=== PATIENT | female | born 1985 | race Caucasian/White ===

== ENCOUNTER 2016-11-06 19:07 | Emergency (ER) | payer MEDICAID ==
[~2016-11-06] VITALS: Ht 154.9 cm; Wt 72.0 kg
[2016-11-06 19:27] VITALS: BP 134/86; PULSE 93; RESP 18; TEMP 98; O2SAT 100
[2016-11-06] MEDS ORDERED: ORPHENADRINE INJ 60 MG/2 ML AMP IM ONE (21:30)
[2016-11-06] MEDS ORDERED: DEXAMETHASONE SOD PHOS 20 MG/5 ML VIAL IM ONE (21:30)
[2016-11-06] MEDS ORDERED: KETOROLAC TROMETHAMINE 60 MG/2 ML (IM) VIAL IM ONE (21:30)
--- NOTE | 2016-11-06 21:30 | PD ---
HPI Chief Complaint: Headache Time Seen by Provider: 21:25 Travel History International Travel<30 days: No Contact w/Intl Traveler<30days: No Traveled to known affect area: No History of Present Illness HPI Patient is a 31-year-old female presenting to the emergency department for evaluation of neck pain and stiffness. Patient states it started 2 weeks ago, it radiates up the back of her head. She denies any initial injury or trauma, she denies any visual changes, weakness, nausea, vomiting, chest pain, shortness of breath, photophobia, fevers. Patient states she took a muscle relaxer one time with no relief of her symptoms. She states her pain is a 6 out of 10 at times, and describes as aching and stiff. PFSH Past Medical History Asthma: Yes Diminished Hearing: No Headaches: Yes Respiratory: Yes (ASTHMA) Tetanus Vaccination: > 5 Years Influenza Vaccination: No ?: Not LMP: 10/20/16 Past Surgical History Ear Surgery: Yes (RIGHT EAR) Social History Alcohol Use: No Tobacco Use: No Substance Use: No Allergies-Medications (Allergen,Severity, Reaction): Coded Allergies: Ginger (Verified Allergy, Intermediate, HIVES, 11/06/16) Reported Meds & Prescriptions Reported Meds & Active Scripts Active Prednisone 50 Mg Tab 50 Mg PO DAILY Flexeril (Cyclobenzaprine HCl) 10 Mg Tab 10 Mg PO TID PRN 10 Days Ibuprofen 800 Mg Tab 800 Mg PO Q8H PRN 10 Days Review of Systems Except as stated in HPI: all other systems reviewed are Neg HENT: Positive: Headaches, Neck Stiffness Physical Exam Narrative GENERAL: Well-developed, well-nourished, alert female. Resting comfortably in no acute distress. Family at bedside. SKIN: Warm and dry. HEAD: Atraumatic. Normocephalic. EYES: Pupils equal and round. No scleral icterus. No injection or drainage. ENT: No nasal bleeding or discharge. Mucous membranes pink and moist. NECK: Trachea midline. No JVD. No cervical spine tenderness noted. Full range of motion with flexion, extension, and rotation of neck. Tenderness to palpation in bilateral paraspinal musculature in the cervical region as well as the upper thoracic region. CARDIOVASCULAR: Regular rate and rhythm. No murmur appreciated. RESPIRATORY: No accessory muscle use. Clear to auscultation. Breath sounds equal bilaterally. GASTROINTESTINAL: Abdomen soft, non-tender, nondistended. Hepatic and splenic margins not palpable. MUSCULOSKELETAL: No obvious deformities. No clubbing. No cyanosis. No edema. 5 /5 muscle strength in bilateral upper extremities. NEUROLOGICAL: Awake and alert. No obvious cranial nerve deficits. Motor grossly within normal limits. Normal speech. PSYCHIATRIC: Appropriate mood and affect; insight and judgment normal. Data Data Last Documented VS Vital Signs Date Time Temp Pulse Resp B/P Pulse Ox O2 Delivery O2 Flow Rate FiO2 11/06/16 22:11 86 16 130/88 99 11/06/16 19:27 98.0 Orders Ketorolac Inj (Toradol Inj) (11/06/16 21:30) Orphenadrine Inj (Norflex Inj) (11/06/16 21:30) Dexamethasone Inj (Decadron Inj) (11/06/16 21:30) [facility] Medical Decision Making Medical Screen Exam Complete: Yes Emergency Medical Condition: Yes Interpretation(s) Vital Signs Date Time Temp Pulse Resp B/P Pulse Ox O2 Delivery O2 Flow Rate FiO2 11/06/16 19:27 98.0 93 18 134/86 100 Differential Diagnosis Cervical strain versus spasm versus torticollis versus other Narrative Course Patient is a 31-year-old female presenting to the emergency department for evaluation of neck pain and stiffness has been ongoing for 2 weeks. Patient is no meningeal signs. She is neurologically intact. Patient has full range of motion with rotation, flexion and extension however it's painful. Redness noted. Patient was given Toradol, Norflex, dexamethasone the emergency department. Patient was reassessed after approximately 45 minutes. Patient reports a significant improvement in her pain. Patient was encouraged to take medications consistently. She was encouraged to apply warm moist heat to the neck. She was encouraged to follow-up with her primary care provider. Additionally patient was advised to come back to emergency department for any new or worsening or concerning symptoms. Patient verbalized understanding of these instructions. Patient is stable for discharge. Diagnosis Primary Impression: Cervical paraspinous muscle spasm Additional Impression: Cervical muscle strain Qualified Code: S16.1XXA - Cervical muscle strain, initial encounter Referrals: Primary Care Physician Patient Instructions: General Instructions, Muscle Spasm (ED), Muscle Strain ( ED) Additional Instructions: Apply warm moist heat to the affected area, continue range of motion exercises, avoid bed rest Take medications as directed Return to emergency department for any new or worsening symptoms Med/Other Pt SpecificInfo: Prescription(s) given Scripts Prednisone 50 Mg Tab50 Mg PO DAILY #3 TAB Ref 0 Prov:Zamzam Wilder 11/06/16 Cyclobenzaprine (Flexeril)10 Mg Tab10 Mg PO TID PRN (MUSCLE SPASM) 10 Days Ref 0 Prov:Zamzam Wilder 11/06/16 Ibuprofen 800 Mg [id number] Mg PO Q8H PRN (Pain/Inflammation) 10 Days Ref 0 Prov:Zamzam Wilder 11/06/16 Disposition: 01 DISCHARGE HOME Condition: Stable Zamzam Wilder Nov 06, 2016 21:30
[2016-11-06] MEDS ORDERED: PRED50 PO (22:02)
[2016-11-06] MEDS ORDERED: IBUP800T23 PO (22:02)
[2016-11-06] MEDS ORDERED: CYCL1TAB29 PO (22:02)
[2016-11-06 22:11] VITALS: BP 130/88
== END 2016-11-06 22:12 | disposition home or self-care (01) ==
LOC: PHED 19:07 → PHEFT 22:12
DX: S16.1XXA Strain of muscle, fascia and tendon at neck level, initial encounter (principal); M62.838 Other muscle spasm; X50.9XXA Other and unspecified overexertion or strenuous movements or postures, initial encounter
CPT/HCPCS: 96372; 99283; J1100; J1885; J2360